=== PATIENT | male | born 1990 | race Caucasian/White ===

== ENCOUNTER 2023-12-19 10:28 | Emergency (ER) | payer OTHER ==
[2023-12-19 10:52] VITALS: BP 139/95; PULSE 78; RESP 18; TEMP 98; BMI 26.6
[2023-12-19 11:55] LABS: BASO % 0.5 % (0-2.0); EOS % 2.2 % (0-4.5); HEMATOCRIT 50.8 % (35.4-49); HEMOGLOBIN 17.2 GM/dL (11.7-16.9); LYMPH % 14.9 % (8-40); MCH 30.8 pg (25.7-33.7); MCHC 33.9 g/dl (32.0-35.9); MEAN CELL VOLUME 90.8 fl (80-96); MEAN PLT VOLUME 8.1 fl (7.5-11.1); MONO % 7.9 % (3.8-10.2); NEUT % 74.5 % (42.8-82.8); PLATELET COUNT 250 10^3/uL (134-434); RBC 5.59 M/mm3 (4.00-5.60); RDW 13.6 % (11.9-15.9); WHITE BLOOD COUNT 8.8 K/mm3 (4.0-10.0)
[2023-12-19 12:16] LABS: POTASSIUM 4.5 mmol/L (3.5-5.1)
[2023-12-19 12:19] LABS: ALBUMIN 4.2 g/dl (3.4-5.0); BLOOD UREA NITROGEN 16.1 mg/dL (7-18); CALCIUM 9.4 mg/dL (8.5-10.1); MAGNESIUM 2.3 mg/dL (1.8-2.4)
[2023-12-19 12:23] LABS: CREATININE 0.9 mg/dL (0.55-1.3)
[2023-12-19 12:24] LABS: BILIRUBIN,TOTAL 0.3 mg/dL (0.2-1); TOT PROT 7.7 g/dl (6.4-8.2)
== END 2023-12-19 13:15 | disposition home or self-care (01) ==
LOC: JER 10:28
DX: R20.2 Paresthesia of skin (principal); R00.2 Palpitations; R42 Dizziness and giddiness
CPT/HCPCS: 36415; 71046-TC-FY; 80053; 83735; 84439; 84443; 84484; 85025; 93005; 93010; 99285-25

== ENCOUNTER 2023-12-21 10:17 | Emergency (ER) | payer OTHER ==
[2023-12-21 10:26] VITALS: BMI 26.6
[2023-12-21 12:22] LABS: BASO % 0.5 % (0-2.0); EOS % 1.4 % (0-4.5); HEMATOCRIT 49.5 % (35.4-49); LYMPH % 19.5 % (8-40); MCH 30.8 pg (25.7-33.7); MCHC 34.3 g/dl (32.0-35.9); MEAN CELL VOLUME 89.9 fl (80-96); MEAN PLT VOLUME 7.8 fl (7.5-11.1); MONO % 10.8 % (3.8-10.2); NEUT % 67.8 % (42.8-82.8); PLATELET COUNT 225 10^3/uL (134-434); RBC 5.51 M/mm3 (4.00-5.60); RDW 13.6 % (11.9-15.9); WHITE BLOOD COUNT 5.1 K/mm3 (4.0-10.0)
[2023-12-21 12:42] LABS: POTASSIUM 4.3 mmol/L (3.5-5.1)
[2023-12-21 12:44] LABS: CALCIUM 9.1 mg/dL (8.5-10.1)
[2023-12-21 12:45] LABS: ALBUMIN 3.9 g/dl (3.4-5.0); BLOOD UREA NITROGEN 11.8 mg/dL (7-18)
[2023-12-21 12:48] LABS: CREATININE 1.1 mg/dL (0.55-1.3)
[2023-12-21 12:49] LABS: BILIRUBIN,TOTAL 0.4 mg/dL (0.2-1); TOT PROT 7.3 g/dl (6.4-8.2)
[2023-12-21 14:20] VITALS: BP 120/82; PULSE 86; RESP 20; TEMP 98.2
== END 2023-12-21 14:20 | disposition home or self-care (01) ==
LOC: JER 10:17
DX: R19.7 Diarrhea, unspecified (principal); R00.2 Palpitations; R20.0 Anesthesia of skin; R20.2 Paresthesia of skin; R11.10 Vomiting, unspecified
CPT/HCPCS: 36415; 80053; 82272; 84484; 85025; 93005; 93010; 99284-25